=== PATIENT | female | born 1955 | race Caucasian/White ===

== ENCOUNTER → 2018-09-23 | Outpatient (CLI) | payer MEDICARE | LOC: M.RAD 09-09 13:11 | DX: Z12.31 Encounter for screening mammogram for malignant neoplasm of breast (principal); Z78.0 Asymptomatic menopausal state; M81.0 Age-related osteoporosis without current pathological fracture ==

== ENCOUNTER 2018-12-31 13:17 | Emergency (ER) | payer OTHER, MEDICARE ==
[~2018-12-31] VITALS: Ht 182.9 cm; Wt 158.8 kg
[2018-12-31] MEDS ORDERED: MOBIC15 MG PO (15:12)
[2018-12-31] MEDS ORDERED: FLEXERIL PO (15:12)
[2018-12-31] MEDS ORDERED: HYDROCODONE-AP1 EAC6 PO (15:12)
[2018-12-31 15:34] VITALS: BP 173/78
== END 2018-12-31 15:40 | disposition home or self-care (01) ==
LOC: M.ERS 13:17
DX: S93.602A Unspecified sprain of left foot, initial encounter (principal); S39.012A Strain of muscle, fascia and tendon of lower back, initial encounter; Z96.653 Presence of artificial knee joint, bilateral; Z90.710 Acquired absence of both cervix and uterus; Z88.2 Allergy status to sulfonamides; Z88.5 Allergy status to narcotic agent; Z88.8 Allergy status to other drugs, medicaments and biological substances; V03.00XA Pedestrian on foot injured in collision with car, pick-up truck or van in nontraffic accident, initial encounter; Y93.89 Activity, other specified; Y92.89 Other specified places as the place of occurrence of the external cause; Y99.8 Other external cause status